=== PATIENT | female | born 1970 | race Caucasian/White ===

== ENCOUNTER 2018-04-05 07:19 | Day surgery (SDC) | payer MEDICARE, MEDICAID ==
[~2018-04-05] VITALS: Ht 160 cm; Wt 78.5 kg
[~2018-04-05 07:19] MED LIST: ACET-1600 PO; CYCL5TAB PO; FENTANYL PF 250 MCG/5ML ONE; FLUT9.9S NS; HYDR25TA6 PO; MELA1TAB8 PO; MIDAZOLAM 1 MG/ML, 2ML ONE
[2018-04-05 08:16] VITALS: BP 137/103
[2018-04-05] MEDS ORDERED: LACTATED RINGERS 1,000 ML IV SCH (08:21)
[2018-04-05 08:41] LABS: HCG UR SG 1.019 (1.003-1.030)
[2018-04-05] MEDS ORDERED: BUPIVACAINE/PF 0.25% ONE (08:44)
[2018-04-05] MEDS ORDERED: INDOCYANINE GREEN 25 MG VIAL ONE (08:44)
[2018-04-05] MEDS ORDERED: EPINEPHRINE 1 MG/ML, 1ML ONE (08:45)
[2018-04-05 08:51] LABS: ALANINE AMINOTRANSFERASE 15 U/L (12-78); ALBUMIN 4.1 g/dL (3.4-5.0); ANION GAP 7 mmol/L (5-15); CALCIUM 8.4 mg/dL (8.5-10.1); CHLORIDE 109 mmol/L (98-107); CREATININE 0.78 mg/dL (0.55-1.02)
[2018-04-05 08:54] LABS: ALKALINE PHOSPHATASE 75 U/L (45-117); BILIRUBIN,TOTAL 0.9 mg/dL (0.2-1.0); TOTAL PROTEIN 7.8 g/dL (6.4-8.2)
[2018-04-05] MEDS ORDERED: ACETAMINOPHEN 500 MG TABLET PO ONE (09:00)
[2018-04-05] MEDS ORDERED: SCOPOLAMINE PATCH, 1.5MG PATCH.TD72 TD ONE (09:00)
[2018-04-05] MEDS ORDERED: GABAPENTIN 300 MG CAPSULE PO ONE (09:00)
[2018-04-05] MEDS ORDERED: SUCCINYLCHOLINE 20 MG/ML, 10ML ONE (09:21)
[2018-04-05] MEDS ORDERED: DEXAMETHASONE 4 MG/ML, 5ML ONE (09:21)
[2018-04-05] MEDS ORDERED: ONDANSETRON 2MG/ML, 2ML ONE (09:21)
[2018-04-05] MEDS ORDERED: GLYCOPYRROLATE 0.2MG/1ML, 5ML ONE (09:21)
[2018-04-05] MEDS ORDERED: NEOSTIGMINE 1 MG/ML, 10ML ONE (09:21)
[2018-04-05] MEDS ORDERED: PROPOFOL 10 MG/ML, 20ML ONE (09:21)
[2018-04-05] MEDS ORDERED: CEFAZOLIN 1,000 MG ONE (09:21)
[2018-04-05] MEDS ORDERED: ROCURONIUM 10MG/ML,5ML ONE (09:21)
[2018-04-05] MEDS ORDERED: ONDANSETRON 2MG/ML, 2ML IVPush PRN (10:00)
[2018-04-05] MEDS ORDERED: MEPERIDINE/PF 25MG/0.5ML IVPush PRN (10:00)
[2018-04-05] MEDS ORDERED: LABETALOL 5MG/ML, 20ML IV PRN (10:00)
[2018-04-05] MEDS ORDERED: PROMETHAZINE 25 MG/ML, 1ML IV PRN (10:00)
[2018-04-05] MEDS ORDERED: ALBUTEROL SULFATE 2.5 MG/3 ML NPPB PRN (10:00)
[2018-04-05] MEDS ORDERED: HYDROmorphone 1 MG/ML, 1ML IV PRN (10:00)
[2018-04-05] MEDS ORDERED: OXYcodone 5 MG/5 ML ORAL.SOL UDC PO PRN (10:00)
[2018-04-05] MEDS ORDERED: KETOROLAC 30 MG/1 ML IV PRN (10:00)
[2018-04-05] MEDS ORDERED: hydrALAzine 20 MG/ML, 1ML IV PRN (10:00)
[2018-04-05] MEDS ORDERED: METOCLOPRAMIDE 5 MG/ML, 2ML IV PRN (10:00)
[2018-04-05] MEDS ORDERED: SUGAMMADEX 200 MG/2 ML IVPush ONE (11:10)
[2018-04-05] MEDS ORDERED: FENTANYL PF 100 MCG/2ML ONE (11:32)
[2018-04-05] MEDS ORDERED: OXYcodone 5 MG/5 ML ORAL.SOL UDC ONE (12:02)
[2018-04-05] MEDS ORDERED: KETOROLAC 30 MG/1 ML ONE (12:02)
[2018-04-05] MEDS: FENTANYL PF 100 MCG/2ML IV PRN ×2 (12:05→12:23)
[2018-04-05] MEDS ORDERED: HYDROmorphone 2 MG/ML, 1ML ONE (12:25)
[2018-04-05] MEDS ORDERED: KETOROLAC 30 MG/1 ML IVPush ONE (12:30)
[2018-04-05] MEDS ORDERED: OXYcodone/APAP 7.5/325MG TABLET PO PRN (16:00)
[2018-04-05] MEDS ORDERED: morphine SULFATE 10 MG/ML, 1ML IVPush ONE (16:00)
== END 2018-04-05 18:00 | disposition home or self-care (01) ==
LOC: OUT 07:19
PROVIDERS: ATTEND Specialist
DX: D27.1 Benign neoplasm of left ovary (principal); N94.6 Dysmenorrhea, unspecified; N95.9 Unspecified menopausal and perimenopausal disorder; I10 Essential (primary) hypertension; F99 Mental disorder, not otherwise specified; Z98.890 Other specified postprocedural states; Z79.899 Other long term (current) drug therapy; Z72.89 Other problems related to lifestyle
CPT/HCPCS: 36415; 58571; 80053; 81025; 86850; 86900; 86923; 88305; 88307; J0171; J0330; J0690; J1100; J1170; J1885; J2250; J2405; J2704; J2710; J3010; J3490; J7120